=== PATIENT | female | born 2000 | race Asian ===

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

== ENCOUNTER 2019-03-17 22:17 | Emergency (ER) | payer OTHER ==
[2019-03-17 22:21] VITALS: BP 130/91; PULSE 104; TEMP 98.9; BMI 21.6
--- NOTE | 2019-03-17 23:03 | PDOC ---
History of Present Illness - General Chief Complaint: Pain Stated Complaint: ABD PAIN Time Seen by Provider: 03/17/19 22:48 History Source: Patient - History of Present Illness Initial Comments: 03/17/19 22:59 18 year old female left ovarian cyst c/o left pelvic pain, patient c/o vaginal bleeding x 2 days with left pelvic pain. patient reports vaginal itching and discharge " i have an yeast infection." + dysuria, denies frequency, flank pain , suprapubic pain recent unprotected sex with same partner unsure of exposure. 03/17/19 23:03 Past History - Past Medical History Allergies/Adverse Reactions: Allergies Allergy/AdvReac Type Severity Reaction Status Date / Time No Known Allergies Allergy Verified 03/17/19 22:21 Home Medications: Ambulatory Orders Cephalexin Monohydrate [Keflex -] 500 mg PO BID #20 capsule 03/18/19 Fluconazole [Diflucan] 150 mg PO ONCE #1 tablet 03/18/19 Miconazole Nitrate [Anti-Fungal Cream] 1 applic TP BID #1 cream..g. 03/18/19 metroNIDAZOLE 0.75% GEL [Metrogel 0.75% Gel -] 1 applic TP BID #14 tube COPD: No Hypercholesterolemia: Yes - Immunization History Immunization Up to Date: Yes - Psycho Social/Smoking Cessation Hx Smoking History: Never smoked Have you smoked in the past 12 months: No Hx Alcohol Use: No Drug/Substance Use Hx: No Substance Use Type: None Review of Systems - Review of Systems Able to Perform ROS?: Yes Is the patient limited Setswana proficient: No Constitutional: No: Symptoms Reported, See HPI, Chills, Diaphoresis, Fever, Loss of Appetite, Malaise, Night Sweats, Weakness, Weight Stable, Unintentional Wgt. Loss, Unexplained wgt Loss, Other : Yes: Other (left pelvic pain, vaginal discharge and itching) *Physical Exam - Vital Signs Last Vital Signs Temp Pulse Resp BP Pulse Ox 98.9 F 104 H 18 130/91 98 03/17/19 22:18 03/17/19 22:18 03/17/19 22:18 03/17/19 22:18 03/17/19 22:18 - Physical Exam General Appearance: Yes: Appropriately Dressed Female Pelvic Exam: positive: normal external exam, other ( labial irritation, thick green vaginal discharge, cottage cheese appearing. Left adnexal tenderness office is closed) Musculoskeletal: positive: Normal Inspection. negative: CVA Tenderness Extremity: positive: Normal Capillary Refill Integumentary: positive: Normal Color, Dry, Warm Neurologic: positive: Fully Oriented, Alert, Normal Mood/Affect ED Progress Note - Progress Note Progress Note: 03/18/19 01:03 A: pelvic pain UA UCG GC Transvaginal US urine culture patient reports recent unprotected sex. Reports that symptoms started after sex. Patient has been using Vagisil at home. Advised to refrain from using Vagisil, findings consistent with BV versus candidiasis. Will treat for possible gonorrhea chlamydia. Patient is informed to refrain from sex for 1 week and partner to be treated. GC is pendong. patient endorses urgency and dysuria. UA nitrite positive and large bacteria. will treat. US results discussed with patient. Medical Decision Making - Medical Decision Making 03/18/19 01:02 There is a 1.1 cm x 8 mm x 6 mm uterine structure in the right side of the uterus which has the appearance of a fibroid. Normal homogeneous endometrial complex measuring approximately 4 mm in thickness. There is a 7 mm round well marginated structure in the right ovary. This probably represents a thick walled complex cyst. It is actually surrounded by a larger 1.3 cm cystic structure as well which could represent a follicle. I have confirmed with nurse practitioner Jonathan that the patient is not and the beta hCG is negative. Additionally, the tenderness is on the left not the right. This would make the rare occurrence of ovarian ectopic unlikely. However follow up recommended to make sure this resolves. There is positive Doppler blood flow/ waveforms to the right ovary. Left ovary is normal with positive Doppler blood flow/waveforms Discharge - Discharge Information Problems reviewed: Yes Clinical Impression/Diagnosis: Vulvovaginal candidiasis, UTI (lower urinary tract infection), Bacterial vaginosis Ovarian cyst Qualifiers: Laterality: right Qualified Code(s): N83.201 - Unspecified ovarian cyst, right side - Additional Discharge Information Prescriptions: Cephalexin Monohydrate [Keflex -] 500 mg PO BID #20 capsule Fluconazole [Diflucan] 150 mg PO ONCE #1 tablet metroNIDAZOLE 0.75% GEL [Metrogel 0.75% Gel -] 1 applic TP BID #14 tube Miconazole Nitrate [Anti-Fungal Cream] 1 applic TP BID #1 cream..g. - Follow up/Referral Referrals: Janice Mccallum MD [Staff Physician] - - Patient Discharge Instructions Patient Printed Discharge Instructions: Bacterial Vaginosis Additional Instructions: It is important that your partner is also treated. Please follow-up with the car ferrier to repeat ultrasound and reevaluation. We will call you if your gonorrhea chlamydia test comes back positive return to the emergency room for any worsening symptoms. - Post Discharge Activity Work/Back to School Note: Back to Work
[2019-03-17 23:41] LABS: EPI CELLS 3.4 /HPF (0-5/HPF); HYALINE CASTS 0 /lpf (0-8); URINE APPEARANCE CLEAR; URINE BILIRUBIN NEGATIVE (NEGATIVE); URINE COLOR YELLOW; URINE GLUCOSE (UA) NEGATIVE (NEGATIVE); URINE KETONE NEGATIVE (NEGATIVE); URINE LEUK ESTERASE 2+ (NEGATIVE); URINE NITRITE POSITIVE (NEGATIVE); URINE PROTEIN NEGATIVE (NEGATIVE); URINE RBC 4 /hpf (0-4); URINE UROBILINOGEN 0.2 mg/dL (0.2-1.0); URINE WBC 12 /hpf (0-5)
[2019-03-18] MEDS ORDERED: AZITHROMYCIN 500 MG TABLET PO ONE (00:44)
[2019-03-18] MEDS ORDERED: AZITHROMYCIN 500 MG TABLET ONE (00:52)
== END 2019-03-18 01:36 | disposition home or self-care (01) ==
LOC: JER 22:17
DX: B37.3 Candidiasis of vulva and vagina (principal); N39.0 Urinary tract infection, site not specified; N83.201 Unspecified ovarian cyst, right side; N76.0 Acute vaginitis; B96.89 Other specified bacterial agents as the cause of diseases classified elsewhere
CPT/HCPCS: 36415; 76830-TC; 81003; 84703; 87491; 87591; 96372; 99282-25

== ENCOUNTER 2020-12-21 00:24 | Emergency (ER) | payer OTHER ==
[2020-12-21 00:47] VITALS: BP 116/87; PULSE 106; TEMP 98.3; BMI 24.3
[2020-12-21] MEDS ORDERED: IBUPROFEN 600 MG TABLET (FP) PO ONE ×2 (03:19→03:30)
[2020-12-21] MEDS ORDERED: morphine CARPU-JECT 2 MG/1 ML DISP.SYRIN IVPUSH ONE (04:35)
[2020-12-21] MEDS ORDERED: MORPHINE SULFATE 2 MG/ML VIAL ONE (04:43)
[2020-12-21 04:57] LABS: BASO % 0.5 % (0-2.0); EOS % 1.8 % (0-4.5); HEMATOCRIT 29.4 % (32.4-45.2); HEMOGLOBIN 9.7 GM/dL (10.7-15.3); LYMPH % 25.5 % (8-40); MCH 26.2 pg (25.7-33.7); MEAN CELL VOLUME 79.5 fl (80-96); MONO % 5.1 % (3.8-10.2); NEUT % 67.1 % (42.8-82.8); PLATELET COUNT 488 10^3/uL (134-434); RDW 14.3 % (11.6-15.6); WHITE BLOOD COUNT 8.9 K/mm3 (4.0-10.0)
[2020-12-21] MEDS ORDERED: CLINDAMYCIN 600MG PREMIX IVPB 600 MG/50 ML BAG IVPB ONE ×2 (05:00→05:19)
[2020-12-21 05:17] LABS: CALCIUM 8.8 mg/dL (8.5-10.1)
[2020-12-21 05:18] LABS: ALBUMIN 3.4 g/dl (3.4-5.0)
[2020-12-21 05:21] LABS: CREATININE 0.5 mg/dL (0.55-1.3)
[2020-12-21 05:22] LABS: BILIRUBIN,TOTAL 0.3 mg/dL (0.2-1); TOT PROT 7.4 g/dl (6.4-8.2)
[2020-12-21 05:38] LABS: EPI CELLS >36 /uL (0-25.1); HYALINE CASTS 2 /uL (0-3.1); URINE APPEARANCE CLOUDY; URINE BACTERIA 818 /uL (0-1359); URINE BILIRUBIN NEGATIVE (NEGATIVE); URINE COLOR YELLOW; URINE GLUCOSE (UA) NEGATIVE (NEGATIVE); URINE KETONE NEGATIVE (NEGATIVE); URINE LEUK ESTERASE 2+ (NEGATIVE); URINE NITRITE NEGATIVE (NEGATIVE); URINE PROTEIN NEGATIVE (NEGATIVE); URINE RBC 12 /uL (0-23.9); URINE WBC 95 /uL (0-25.8)
== END 2020-12-21 06:13 | disposition home or self-care (01) ==
LOC: JER 00:24
PROC: 3E03329 Introduction of Other Anti-infective into Peripheral Vein, Percutaneous Approach (ICD-10-PCS; principal; 2020-12-21)
PROC: 3E033GC Introduction of Other Therapeutic Substance into Peripheral Vein, Percutaneous Approach (ICD-10-PCS; 2020-12-21)
DX: N39.0 Urinary tract infection, site not specified (principal); T81.31XA Disruption of external operation (surgical) wound, not elsewhere classified, initial encounter
CPT/HCPCS: 36415; 80053; 81003; 85025; 87070; 87086; 87186; 87205; 99284-25

== ENCOUNTER 2022-05-01 17:49 | Emergency (ER) | payer OTHER ==
[2022-05-01 17:53] VITALS: BP 117/83; PULSE 86; RESP 18; TEMP 98
[2022-05-01] MEDS ORDERED: FAMOTIDINE 20 MG TABLET PO ONE (19:33)
[2022-05-01] MEDS ORDERED: diphenhydrAMINE HCL 25 MG CAPSULE (FP) PO ONE ×4 (19:33→20:32)
[2022-05-01] MEDS ORDERED: FAMOTIDINE 20 MG TABLET ONE (19:42)
[2022-05-01] MEDS ORDERED: DEXAMETHASONE SOD PHOSPHATE 10 MG/1 ML VIAL ONE (20:32)
[2022-05-01] MEDS ORDERED: DEXAMETHASONE SOD PHOSPHATE 10 MG/1 ML VIAL IM ONE (20:32)
[2022-05-01] MEDS ORDERED: DEXAMETHASONE 4 MG TABLET (FP) PO ONE (20:35)
[2022-05-01 20:42] LABS: EPI CELLS 26 /uL (0-25.1); HYALINE CASTS 1 /uL (0-3.1); URINE APPEARANCE CLOUDY; URINE BACTERIA >9,000 /uL (0-1359); URINE BILIRUBIN NEGATIVE (NEGATIVE); URINE COLOR YELLOW; URINE GLUCOSE (UA) NEGATIVE (NEGATIVE); URINE KETONE TRACE (NEGATIVE); URINE LEUK ESTERASE NEGATIVE (NEGATIVE); URINE NITRITE POSITIVE (NEGATIVE); URINE PROTEIN NEGATIVE (NEGATIVE); URINE RBC 3 /uL (0-23.9); URINE UROBILINOGEN 0.2 mg/dL (0.2-1.0); URINE WBC 11 /uL (0-25.8)
== END 2022-05-01 22:21 | disposition home or self-care (01) ==
LOC: JERFT 17:49 → JER 17:49 → JERFT 22:21
DX: T78.40XA Allergy, unspecified, initial encounter (principal)
CPT/HCPCS: 81003; 87086; 87186; 99283-25

== ENCOUNTER 2024-12-05 06:54 | Day surgery (SDC) | payer OTHER ==
[2024-11-28 15:25] VITALS: BMI 29.0
[2024-12-05] MEDS ORDERED: MIDAZOLAM HCL 2 MG/2 ML SINGLE DOSE VIAL ONE (09:01)
[2024-12-05] MEDS ORDERED: ONDANSETRON 4 MG/2 ML VIAL ONE (09:10)
[2024-12-05] MEDS ORDERED: DEXAMETHASONE SOD PHOSPHATE 4 MG/1 ML VIAL ONE (09:10)
[2024-12-05] MEDS ORDERED: PROPOFOL 20 ML ONE (09:10)
[2024-12-05] MEDS ORDERED: LIDOCAINE HCL 2% 100 MG/5 ML DISP.SYRIN ONE (09:10)
[2024-12-05] MEDS ORDERED: LIDOCAINE HCL 1%, 10 MG/ML (20ML VIAL) ONE (09:25)
[2024-12-05] MEDS: LIDOCAINE HCL 1%, 10 MG/ML (20ML VIAL) NR ONE ×2 (09:27)
[2024-12-05] MEDS ORDERED: KETOROLAC TROMETHAMINE 30 MG/1 ML VIAL ONE (09:33)
[2024-12-05] MEDS: BACITRACIN ZINC 15 GM TUBE TOPICAL OINTMENT TP ONE (09:38)
[2024-12-05] MEDS ORDERED: ONDANSETRON 4 MG/2 ML VIAL IVPUSH PRN ×2 (10:00→10:02)
[2024-12-05] MEDS ORDERED: ELECTROLYTE-148 SOLN 1,000 ML IV SCH (10:00)
[2024-12-05] MEDS ORDERED: IBUPROFEN 600 MG TABLET (FP) PO PRN (10:00)
[2024-12-05] MEDS ORDERED: IBUPROFEN 800 MG/8 ML IJ IVPB PRN (10:00)
[2024-12-05] MEDS: ACETAMINOPHEN 1000 MG/100 ML BAG IVPB PRN (10:10)
[2024-12-05] MEDS ORDERED: LACTATED RINGERS SOLUTION 1,000 ML IV SCH (10:15)
[2024-12-05 11:36] VITALS: PULSE 78; RESP 20; TEMP 97.7
[2024-12-05 12:56] VITALS: BP 116/74
== END 2024-12-05 12:56 | disposition home or self-care (01) ==
LOC: JASU-SURG 06:54
PROVIDERS: ATTEND Obstetrics & Gynecology
PROC: 0UBMXZZ Excision of Vulva, External Approach (ICD-10-PCS; principal; 2024-12-05 09:00)
DX: N90.60 Unspecified hypertrophy of vulva (principal)
CPT/HCPCS: 81025; 88305-TC; 94760